=== PATIENT | male | born 1970 | race Caucasian/White ===

== ENCOUNTER 2020-03-31 10:22 | Emergency (ER) | payer OTHER, SELFPAY ==
[2020-03-31 10:31] VITALS: BP 112/81; PULSE 98; RESP 20; TEMP 36.2; O2SAT 100
--- NOTE | 2020-03-31 10:57 | ED.BACK ---
HPI - Back Pain/Injury General Chief Complaint: Back Pain/Injury Stated Complaint: lower back pain/spasms Source: patient and RN notes reviewed Limitations: no limitations History of Present Illness HPI Narrative: The patient, on minimal medications, presents with low back pain. Patient states he has a 2-day history of mid back pain that is worse with motion, better at rest, somewhat like previous episode years ago, and he feels prompted by recent overactivity. No fever, bowel?bladder symptoms, hematuria/dysuria/frequency, radiating pain, numbness/weakness. Symptoms are mild, minimally relieved with previous pain medicines Related Data Home Medications Medication Instructions Recorded Confirmed atorvastatin 10 mg PO DAILY 03/31/20 03/31/20 escitalopram oxalate 10 mg PO DAILY 03/31/20 03/31/20 eszopiclone 3 mg PO HS 03/31/20 03/31/20 lisdexamfetamine [Vyvanse] 50 mg PO DAILY 03/31/20 03/31/20 Allergies Allergy/AdvReac Type Severity Reaction Status Date / Time No Known Allergies Allergy Verified 03/31/20 10:40 Review of Systems Review of Systems: Narrative: General/Constitutional: No weight loss,fever Eyes: N0: Redness,discharge Ears/Nose/Throat: No: Epistaxis,ear discharge Respiratory: Denies: Hemoptysis Gastrointestinal: No Vomiting, Bleeding-rectal Skin: No Lumps, eruption Neurologic: No Focal Weakness,Sz Hematologic: Denies: Petechiae/Purpura Psychiatric: No: Suicida ideationl All Other Systems: Reviewed and Negative PMFSH Comments At time of signature, agree with nursing past medical, surgical, social and family history. There is no relevant family history pertinent to the presenting complaint Exam HENMT: Other: General Appearance: Well appearing, Well nourished, Conjunctiva clear Ears: External ear normal Nose: Normal nose Mouth/Throat: Normal appearing,supple Respiratory: Airway patent Abdomen: Soft Musculoskeletal: Normal strength (no footdrop, 5/5 : EH L-FHL, gastroc-AT, no saddle weakness) Spine/Back: Paraspinal muscle tender (with mild decreased range of motion; near SI junction, nontender sciatic notch) Skin: Normal color Neurological: A&O x3, CN II-XII intact, Normal reflexes (symmetric, 2+ KJ, trace AJ) Psychiatric: Normal mood Course Vital Signs Vital signs: Vital Signs Temperature 97.1 F L 03/31/20 10:31 Pulse Rate 98 03/31/20 10:31 Respiratory Rate 03/31/20 10:31 Blood Pressure 112/81 03/31/20 10:31 Pulse Oximetry 100 03/31/20 10:31 Temperature 97.1 F L 03/31/20 10:31 Pulse Rate 98 03/31/20 10:31 Respiratory Rate 03/31/20 10:31 Blood Pressure 112/81 03/31/20 10:31 Pulse Oximetry 100 03/31/20 10:31 Discharge Plan Discharge Clinical Impression: Strain of lumbar region Patient Disposition: Home, Self-Care Condition: Stable Instructions: Acute Low Back Pain (ED) Prescriptions: New prednisone 20 mg tablet 60 mg PO DAILY Qty: 15 RF: 0 acetaminophen-codeine 300-30 mg tablet 1 - 2 tablet PO HS PRN (Reason: pain) Qty: 15 RF: 0 tramadol 50 mg tablet 50 mg PO TID PRN (Reason: pain) Qty: 15 RF: 1 No Action atorvastatin 10 mg Tablet 10 mg PO DAILY RF: 0 escitalopram oxalate 10 mg Tablet 10 mg PO DAILY RF: 0 eszopiclone 3 mg Tablet 3 mg PO HS RF: 0 Vyvanse 50 mg Capsule 50 mg PO DAILY RF: 0 Follow-up/Referrals: ,Chaz Valdez MD [Primary Care Provider] -
== END 2020-03-31 11:09 | disposition home or self-care (01) ==
PROVIDERS: Emergency Provider Emergency Medicine; PCP Family Medicine
DX: S39.012A Strain of muscle, fascia and tendon of lower back, initial encounter (principal); X50.9XXA Other and unspecified overexertion or strenuous movements or postures, initial encounter; E78.00 Pure hypercholesterolemia, unspecified; F41.9 Anxiety disorder, unspecified
CPT/HCPCS: 99213; G0463

== ENCOUNTER 2021-04-26 07:47 | Outpatient (CLI) | payer OTHER, SELFPAY ==
--- NOTE | 2021-05-02 19:35 | WPDHOMESLEEP ---
Sleep Study - Home Unattended Date of Study: 04/26/21 <Jennifer Munroe, DO - Last Filed: 05/02/21 19:49> Ordering Provider: Bennie Olson APRN <Jennifer Munroe, - Last Filed: 05/02/21 19:49> Interpreting Provider: Jennifer Munroe DO <Jennifer Munroe, - Last Filed: 05/02/21 19:49> Home Sleep Study Type: Watch PAT <Jennifer Munroe, - Last Filed: 05/02/21 19:49> Height: 1.75 m <Jennifer Munroe - Last Filed: 05/02/21 19:49> Weight: 68.039 kg <Jennifer Munroe DO - Last Filed: 05/02/21 19:49> Body Mass Index: 22.1 <Jennifer Munroe - Last Filed: 05/02/21 19:49> Neck Circumference (inches): 15 <Jennifer Munroe DO - Last Filed: 05/02/21 19:49> [place]: 10 <Jennifer Munroe, - Last Filed: 05/02/21 19:49> Reason for Sleep Study Insomnia, daytime hypersomnia and snoring. <Jennifer Munroe, - Last Filed: 05/02/21 19:49> Sleep History The patient is a 50-year-old male with insomnia, anxiety, ADHD and hyperlipidemia that had a sleep study ordered by the pulmonology office For evaluation of sleep apnea. The patient works as an litigation attorney. He states that he has had difficulty sleeping through the night for over 5 years. Within the past year, he has been waking up more frequently. He has tried guided centering, hypnosis and medication for his insomnia. He denies awakening from sleep short of breath. He rarely awakens at night with heartburn, belching or cough. He often snores but rarely loud enough that others complain. He denies waking up gasping for air throughout the night. He occasionally sweats excessively at night. He denies heart palpitations throughout the night. He often falls asleep during the day and rarely while driving. He denies cataplexy and hypnagogic / hypnopompic hallucinations. He rarely has sleep paralysis. He occasionally has trouble at work due to sleepiness. He rarely has nightmares. He frequently has thoughts racing through his mind. He rarely feels sad or depressed but frequently feels anxious. He denies noticing parts of his body jerk. He denies kicking throughout the night. He denies experiencing crawling and aching feelings in his legs as well as leg pain during the night. He occasionally grinds his teeth during sleep but never awakens with jaw pain. He has never bothered by pain during the day nor awakened by pain throughout the night. The patient did not answer any questions regarding his sleep habits. He currently lives with his partner and 2 children. He does not consume any caffeinated beverages within 2 hours prior to bedtime. He does do physical exercise before bedtime. He will read and watch television before falling asleep. He will take naps in the afternoon or evening and they are refreshing. He will drink about 100 oz of soda per day. He will drink 1-2 alcoholic beverages per month. He denies tobacco and recreational drug use. <Jennifer Munroe DO - Last Filed: 05/02/21 19:49> [facility] Past Medical History Medical History: Medical History ADHD Anxiety TERRELL (generalized anxiety disorder) Hyperlipemia Insomnia <Jennifer Munroe DO - Last Filed: 05/02/21 19:49> Surgical History Surgical History: Surgical History History of repair of ACL <Jennifer Munroe DO - Last Filed: 05/02/21 19:49> Social History Social History: Social History Smoking status: Never smoker Alcohol intake: never Substance use: never <Jennifer Munroe DO - Last Filed: 05/02/21 19:49> Medications Home Medications: Home Medications Medication Instructions Recorded Confirmed Type lisdexamfetamine [Vyvanse] 50 mg PO DAILY 03/31/20 02/25/21 History bupropion HC
[2021-05-02 19:49] VITALS: BMI 22.1
== END 2021-04-30 09:58 | disposition home or self-care (01) ==
LOC: ANHCSM 07:47
PROVIDERS: PCP Family Medicine; Visit Provider Nurse Practitioner Family
DX: G47.33 Obstructive sleep apnea (adult) (pediatric) (principal)
CPT/HCPCS: 95800